=== PATIENT | female | born 1940 | race Hispanic/Latino ===

== ENCOUNTER 2017-05-17 00:17 | Inpatient (IN) | payer MEDICARE, OTHER ==
[2017-05-17 00:17] VITALS: BMI 25.1
[2017-05-17] MEDS ORDERED: Sodium Chloride 0.9% 1,000 ML IV STA (01:35)
[2017-05-17] MEDS ORDERED: Albuterol 0.083% Inhal Sol (2.5 mg/3 mL) UD INH STA ×2 (01:41→01:45)
[2017-05-17 02:22] LABS: BASO % 0.3 % (0.0-2.0); EOS # 0.1 K/uL (0.0-0.7); EOS % 0.5 % (0.0-4.0); HEMOGLOBIN 12.8 g/dL (12.0-16.0); LYMPH # 1.2 K/uL (1.0-4.3); LYMPH % 9.2 % (20.0-40.0); MEAN CELL VOLUME 92.5 fl (81.0-99.0); MEAN CORPUSCULAR HEMOGLOBIN 30.2 pg (27.0-31.0); MEAN CORPUSCULAR HGB CONC 32.6 g/dL (33.0-37.0); MEAN PLATELET VOLUME 10.8 fl (7.2-11.7); MONO # 0.9 K/uL (0.0-0.8); MONO % 7.1 % (0.0-10.0); NEUT # 10.6 K/uL (1.8-7.0); NEUT % 82.9 % (50.0-75.0); PLATELET COUNT 93 K/uL (130-400); RBC 4.24 Mil/uL (3.80-5.20); RED CELL DISTRIBUTION WIDTH 14.6 % (11.5-14.5); WHITE BLOOD COUNT 12.7 K/uL (4.8-10.8)
--- NOTE | 2017-05-17 02:26 | ED PDOC ---
HPI: General Adult Time Seen by Provider: 05/17/17 01:34 Chief Complaint (Nursing): Flu-like Symptoms Chief Complaint (Provider): Flu-like Symptoms History Per: Patient History/Exam Limitations: no limitations Onset/Duration Of Symptoms: Days (x2) Current Symptoms Are (Timing): Still Present Additional Complaint(s): Sarah Carmichael is a 76 year old female with a history of hypertension, angina, and asthma that presents to the ED with a chief complaint of flu-like symptoms that she has been experiencing for the past 2 days. Patient reports that she has had weakness, malaise, body aches, headache, and cough, but denies any nausea, vomiting, or diarrhea. Past Medical History Reviewed: Historical Data, Nursing Documentation, Vital Signs Vital Signs: Last Vital Signs Temp 98.2 F 05/19/17 16:31 Pulse 95 H 05/19/17 16:31 Resp 20 05/19/17 16:31 BP 132/71 05/19/17 16:31 Pulse Ox 97 05/19/17 16:31 - Medical History PMH: Anxiety, Asthma, Bronchitis, CAD, Gastritis, HTN, Hypothyroidism, Migraine , Osteoporosis (OSTEOPENIA) Denies: Colonic Polyps, Fractures, Chronic Kidney Disease, Sleep Apnea, TIA - Surgical History Surgical History: Cholecystectomy (complicated, required revision), Endoscopy ( Dr. Ratliff (GI)) - Family History Family History: States: Unknown Family Hx - Social History Current smoker - smoking cessation education provided: No Alcohol: None Drugs: Denies - Home Medications Home Medications: Ambulatory Orders Medication Instructions Recorded ALPRAZolam [Xanax] 0.5 tab PO TID PRN #0 tab 02/16/16 Albuterol 0.083% [Albuterol 0.083% 2.5 mg INH QID PRN #0 neb 02/16/16 Inhal Kristy (2.5 mg/3 ml) UD] Aspirin [Adult Low Dose Aspirin EC] 81 mg PO DAILY #0 tablet. 02/16/16 Calcium Carbonate [Oscal] 1 tab PO BID #0 tab 02/16/16 Fluticasone/Salmeterol 250/50 1 puff IH Q12 #0 puff 02/16/16 [Advair Diskus] Levothyroxine [Synthroid] 125 mcg PO DAILY #0 tab 11/15/16 Omeprazole 20 mg PO DAILY #0 capsule. 02/16/16 Valsartan [Diovan] 80 mg PO DAILY #0 tab 02/16/16 Zolpidem [Ambien] 10 mg PO HS #0 tab 02/16/16 amLODIPine [Norvasc] 10 mg PO DAILY #0 tab 02/16/16 traMADol [Ultram] 50 mg PO TID PRN #12 tab 02/16/16 Albuterol HFA [Ventolin HFA 90 2 puff INH Q6 PRN 05/17/17 mcg/actuation (8 g)] - Allergies Allergies/Adverse Reactions: Allergies Allergy/AdvReac Type Severity Reaction Status Date / Time ciprofloxacin Allergy chest Verified 11/30/16 07:02 pressure amoxicillin AdvReac DIARRHEA Verified 11/30/16 07:02 amoxicillin trihydrate AdvReac DIARRHEA Verified 11/30/16 07:02 [From Augmentin] cortisone AdvReac DIZZINESS Verified 11/30/16 07:02 potassium clavulanate AdvReac DIARRHEA Verified 11/30/16 07:02 [From Augmentin] Review of Systems ROS Statement: Except As Marked, All Systems Reviewed And Found Negative Constitutional: Positive for: Fever, Chills, Weakness, Malaise, Other (body aches) Respiratory: Positive for: Cough Neurological: Positive for: Headache Physical Exam - Reviewed Nursing Documentation Reviewed: Yes Vital Signs Reviewed: Yes - Physical Exam Appears: Positive for: Non-toxic, Uncomfortable (Patient is febrile) Head Exam: Positive for: ATRAUMATIC, NORMOCEPHALIC Skin: Positive for: Normal Color, Warm Eye Exam: Positive for: Normal appearance, EOMI, PERRL ENT: Positive for: Normal ENT Inspection Neck: Positive for: Normal, Supple Cardiovascular/Chest: Positive for: Regular Rate, Rhythm, Tachycardia. Negative for: Murmur Respiratory: Positive for: Wheezing (b/l expiratory wheezing). Negative for: Normal Breath Sounds Gastrointestinal/Abdominal: Positive for: Normal Exam, Soft. Negative for: Tenderness Back: Positive for: Normal Inspection. Negative for: L CVA Tenderness, R CVA Tenderness Extremity: Positive for: Normal ROM. Negative for: Deformity, Swelling Neurologic/Psych: Positive for: Alert, Oriented. Negative for: Motor/Sensory Deficits - Laboratory Results Result Diagrams: 05/19/17 06:05/18/17 05:45 - ECG O2 Sat by Pulse Oximetry: 90 (RA) Pulse Ox Interpretation: Normal Medical Decision Making Medical Decision Making: Impression: 76 year old female with flu-like symptoms in setting of known asthma Plan: * Chest X-Ray * EKG * CMP * CBC * Plasma Lactic Acid * Urine Dip * Flu Swab * Tylenol 975 mg PO * Lactated Ringers 1000 mLs at 125 mLs/hr * Tamiflu 75 mg PO * Albuterol 5 mg INH * Peak Flow Pre/Post Tx * Reevaluation 2:56 Chest X-Ray shows left lingular infiltrate. Patient will be hospitalized as observation patient for pneumonia. Case referred to Dr. Beaver, Hospitalist, who covers Dr. Pillai, patient's PMD. Scribe Attestation: Documented by Valeria Brunson, acting as a scribe for Cirilo Ramsey MD. Provider Scribe Attestation: All medical record entries made by the Scribe were at my direction and personally dictated by me. I have reviewed the chart and agree that the record accurately reflects my personal performance of the history, physical exam, medical decision making, and the department course for this patient. I have also personally directed, reviewed, and agree with the discharge instructions and disposition. Disposition - Clinical Impression Clinical Impression: Pneumonia - Disposition Disposition Time: 02:56 Condition: FAIR - Pt Status Changed To: Hospital Disposition Of: Observation
[2017-05-17 02:28] LABS: ALB/GLOB RATIO 1.1 (1.0-2.1); ALBUMIN 4.4 g/dL (3.5-5.0); ALT/SGPT 89 U/L (9-52); AST/SGOT 106 U/L (14-36); BLOOD UREA NITROGEN 14 mg/dl (7-17); CALCIUM 9.6 mg/dL (8.4-10.2); GFR AFRICAN-AMERICAN > 60; GFR NON-AFRICAN AMERICAN > 60
[2017-05-17] MEDS ORDERED: Albuterol 0.083% Inhal Sol (2.5 mg/3 mL) UD ONE (02:28)
[2017-05-17] MEDS ORDERED: Azithromycin 500 MG in Sodium Chloride 0.9% 250 ML IVPB STA (02:45)
--- NOTE | 2017-05-17 03:23 | CP.PCM.HP ---
History of Present Illness - History of Present Illness History of Present Illness: CC: Cough, SOB HPI: 76 y/o female with MHx significant for HTN, CAD, and asthma among other conditions who comes in with flu-like symptoms x 2 days. Patient has had f/c, myalgias, weakness, CEBALLOS. She has had some cough and SOB, but denies n/v/d. Denies CP. MHx: HTN, anxiety, hypothyroid, gastritis, CAD, ?Asthma SHx: Thyroid, GB (complicated) Allergies: Cipro, PCNs, clavulanic acid Medications: see below Family Hx: reveiwed, none pertinent to current illness Social Hx: Lives with ; denies EtOH or tobacco use Surrogate Decision Maker: Ric, ; info is on the chart Present on Admission - Present on Admission Any Indicators Present on Admission: No Past Patient History - Infectious Disease Hx of Infectious Diseases: None - Past Medical History & Family History Past Medical History?: Yes - Past Social History Alcohol: None Drugs: Denies - CARDIAC Hx Hypertension: Yes - PULMONARY Hx Asthma: Yes Hx Bronchitis: Yes Hx Sleep Apnea: No - NEUROLOGICAL Hx Migraine: Yes Hx Transient Ischemic Attacks (TIA): No - HEENT Hx HEENT Problems: No - RENAL Hx Chronic Kidney Disease: No - ENDOCRINE/METABOLIC Hx Hypothyroidism: Yes - HEMATOLOGICAL/ONCOLOGICAL Hx Blood Disorders: No Hx Blood Transfusions: Yes Hx Blood Transfusion Reaction: No - INTEGUMENTARY Hx Dermatological Problems: No - MUSCULOSKELETAL/RHEUMATOLOGICAL Hx Fractures: No Hx Osteoporosis: Yes (OSTEOPENIA) - GASTROINTESTINAL Hx Gastritis: Yes - GENITOURINARY/GYNECOLOGICAL Hx Genitourinary Disorders: No - PSYCHIATRIC Hx Anxiety: Yes - SURGICAL HISTORY Hx Cholecystectomy: Yes (complicated, required revision) - ANESTHESIA Hx Anesthesia: Yes Hx Anesthesia Reactions: No Hx Malignant Hyperthermia: No Meds Allergies/Adverse Reactions: Allergies Allergy/AdvReac Type Severity Reaction Status Date / Time ciprofloxacin Allergy chest Verified 11/30/16 07:02 pressure amoxicillin AdvReac DIARRHEA Verified 11/30/16 07:02 amoxicillin trihydrate AdvReac DIARRHEA Verified 11/30/16 07:02 [From Augmentin] cortisone AdvReac DIZZINESS Verified 11/30/16 07:02 potassium clavulanate AdvReac DIARRHEA Verified 11/30/16 07:02 [From Augmentin] Physical Exam - Constitutional Appears: Toxic - Head Exam Head Exam: ATRAUMATIC, NORMOCEPHALIC - Eye Exam Eye Exam: EOMI, PERRL - ENT Exam ENT Exam: Mucous Membranes Moist - Neck Exam Neck exam: Positive for: Full Rom - Respiratory Exam Respiratory Exam: Rhonchi, Wheezes, NORMAL BREATHING PATTERN - Cardiovascular Exam Cardiovascular Exam: REGULAR RHYTHM, +S1, +S2 - GI/Abdominal Exam GI & Abdominal Exam: Normal Bowel Sounds - Extremities Exam Extremities exam: Positive for: full ROM, pedal edema - Neurological Exam Neurological exam: Alert, CN II-XII Intact, Oriented x3 - Psychiatric Exam Psychiatric exam: Normal Affect, Normal Mood - Skin Skin Exam: Dry, Warm Results - Vital Signs Recent Vital Signs: Last Vital Signs Temp 100.8 F H 05/17/17 01:24 Pulse 122 H 05/17/17 01:24 Resp 20 05/17/17 01:24 BP 147/71 05/17/17 01:24 Pulse Ox 90 L 05/17/17 02:59 - Labs Result Diagrams: 05/17/17 02:18 05/17/17 02:18 Labs: Laboratory Results - last 24 hr 05/17/17 05/17/17 05/17/17 02:07 02:18 02:18 WBC 12.7 H RBC 4.24 Hgb 12.8 Hct 39.3 MCV 92.5 D MCH 30.2 MCHC 32.6 L RDW 14.6 H Plt Count 93 L D MPV 10.8 Neut % (Auto) 82.9 H Lymph % (Auto) 9.2 L [place] % (Auto) 7.1 Eos % (Auto) 0.5 Baso % (Auto) 0.3 Neut # (Auto) 10.6 H Lymph # (Auto) 1.2 [place] # (Auto) 0.9 H Eos # (Auto) 0.1 Baso # (Auto) 0.0 Sodium 142 Potassium 4.2 Chloride 104 Carbon Dioxide 27 Anion Gap 15 BUN 14 Creatinine 0.8 Est GFR ( Amer) > 60 Est GFR (Non-Af Amer) > 60 Random Glucose 153 H Lactic Acid Calcium 9.6 Total Bilirubin 0.9 AST 106 H ALT 89 H D Alkaline Phosphatase 156 H Total Protein 8.2 Albumin 4.4 Globulin 3.8 Albumin/Globulin Ratio 1.1 Influenza Typ A,B (EIA) Negative for flu a/b 05/17/17 02:18 WBC RBC Hgb Hct MCV MCH MCHC RDW Plt Count MPV Neut % (Auto) Lymph % (Auto) [place] % (Auto) Eos % (Auto) Baso % (Auto) Neut # (Auto) Lymph # (Auto) [place] # (Auto) Eos # (Auto) Baso # (Auto) Sodium Potassium Chloride Carbon Dioxide Anion Gap BUN Creatinine Est GFR ( Amer) Est GFR (Non-Af Amer) Random Glucose Lactic Acid 2.2 H Calcium Total Bilirubin AST ALT Alkaline Phosphatase Total Protein Albumin Globulin Albumin/Globulin Ratio Influenza Typ A,B (EIA) - Imaging and Cardiology Chest x-ray Status: Image reviewed by me, Report reviewed by me (lingrishi PNA per official read) Assessment & Plan (1) CAP (community acquired pneumonia) Assessment and Plan: 76 y/o female with multiple medical with CAP on CXR in setting of flu like symptoms (negative flu swab). 1) Flu + CAP -For now continue tamiflu -Cont azithromycin for CAP coverage; Will add 1x dose of Vanco 1 g for MRSA PNA in setting of post flu -Consider ID consult -Duonebs -IVF 2) Thyroid -- cont home medications 3) HTN -- cont home medications 4) DVT PPx -- SC Lovenox Status: Acute (2) Influenza Status: Acute (3) Asthma exacerbation Status: Acute (4) DVT prophylaxis Status: Acute
[2017-05-17] MEDS ORDERED: Albuterol-Ipratrop 3 mg / 0.5 (3 ml) UD INH PRN (03:34)
[2017-05-17] MEDS ORDERED: Sodium Chloride 0.9% 1,000 ML IV SCH (03:45)
[2017-05-17] MEDS: Lactated Ringer's 1,000 ML IV SCH ×2 (04:21→09:54)
[2017-05-17 05:08] LABS: BANDS 1 % (0-2); LYMPHOCYTE 11 % (20-50); MONOCYTE 2 % (0-10); NEUTROPHIL 85 % (42-75); REACTIVE LYMPHOCYTES 1 % (0-0); TOTAL CELLS COUNTED 100
[2017-05-17 05:09] LABS: PLATELET ESTIMATE MARKEDLY DECREASED (NORMAL)
[2017-05-17 05:10] LABS: ANISOCYTOSIS SLIGHT; HYPOCHROMIC SLIGHT; STOMATOCYTES SLIGHT
[2017-05-17] MEDS: Albuterol-Ipratrop 3 mg / 0.5 (3 ml) UD INH SCH ×3 (08:26→16:01)
[2017-05-17] MEDS: Fluticasone-Salmeterol 250-50mcg Diskus IH SCH ×2 (09:48→22:15)
[2017-05-17] MEDS: Enoxaparin 40 mg Syringe SC SCH (09:49)
[2017-05-17] MEDS: Levothyroxine 125 MCG TAB PO SCH (09:50)
[2017-05-17] MEDS: Pantoprazole 40 mg EC Tab PO SCH (09:50)
--- NOTE | 2017-05-17 10:23 | RAD ---
HISTORY: cough COMPARISON: 02/13/2016 FINDINGS: LUNGS: The left infrahilar bronchial/peribronchial markings are increased -consistent with a bronchitis and/or small cyst infiltrate here. Lung volumes at the lower limits of normal. PLEURA: No significant pleural effusion identified, no pneumothorax apparent. CARDIOVASCULAR: Minimal cardiomegaly OSSEOUS STRUCTURES: Thoracic spondylosis. Bilateral shoulder arthrosis VISUALIZED UPPER ABDOMEN: Right upper quadrant cholecystectomy clips inferred OTHER FINDINGS: None. IMPRESSION: Interval left infrahilar bronchitic and/or early infiltrate changes
--- NOTE | 2017-05-17 14:07 | CARD ---
APPROVED REPORT EKG Measurement Heart [id number] <Conclusion> Sinus tachycardia Right bundle branch block Abnormal ECG
[2017-05-18 06:40] LABS: BASO % 0.2 % (0.0-2.0); EOS # 0.1 K/uL (0.0-0.7); EOS % 0.9 % (0.0-4.0); LYMPH # 2.3 K/uL (1.0-4.3); LYMPH % 16.7 % (20.0-40.0); MEAN CELL VOLUME 91.9 fl (81.0-99.0); MEAN CORPUSCULAR HEMOGLOBIN 30.5 pg (27.0-31.0); MEAN CORPUSCULAR HGB CONC 33.2 g/dL (33.0-37.0); MEAN PLATELET VOLUME 11.2 fl (7.2-11.7); MONO # 0.7 K/uL (0.0-0.8); MONO % 5.3 % (0.0-10.0); NEUT # 10.4 K/uL (1.8-7.0); NEUT % 76.9 % (50.0-75.0); RBC 3.92 Mil/uL (3.80-5.20); RED CELL DISTRIBUTION WIDTH 14.8 % (11.5-14.5); WHITE BLOOD COUNT 13.6 K/uL (4.8-10.8)
[2017-05-18 06:49] LABS: BLOOD UREA NITROGEN 7 mg/dl (7-17); CALCIUM 8.7 mg/dL (8.4-10.2); GFR AFRICAN-AMERICAN > 60; GFR NON-AFRICAN AMERICAN > 60
[2017-05-18] MEDS: Albuterol-Ipratrop 3 mg / 0.5 (3 ml) UD INH SCH ×4 (08:58→20:59)
[2017-05-18] MEDS: Fluticasone-Salmeterol 250-50mcg Diskus IH SCH ×2 (09:05→21:21)
[2017-05-18] MEDS: Levothyroxine 125 MCG TAB PO SCH (09:06)
[2017-05-18] MEDS: Pantoprazole 40 mg EC Tab PO SCH (09:06)
[2017-05-18] MEDS: Enoxaparin 40 mg Syringe SC SCH (09:06)
[2017-05-18] MEDS: Azithromycin 500 MG in Sodium Chloride 0.9% 250 ML IVPB SCH (09:12)
--- NOTE | 2017-05-18 10:25 | CP.PCM.PN ---
Subjective - Date & Time of Evaluation Date of Evaluation: 05/18/17 Time of Evaluation: 10:23 - Subjective Subjective: PT CONTINUES TO COUGH, SATURATING IMPROVED FROM YESTERDAY, HOWEVER NOT AT BASELINE, CLINICALLY WORSE THAN YESTERDAY. otherwise no complaints HD STABLE NAD Objective - Vital Signs/Intake and Output Vital Signs (last 24 hours): Temp Pulse Resp BP Pulse Ox 99.3 F 98 H 20 150/72 93 L 05/18/17 08:10 05/18/17 09:06 05/18/17 08:10 05/18/17 09:06 05/18/17 08:10 - Medications Medications: Current Medications Acetaminophen (Tylenol 325mg Tab) 650 mg PO Q6 PRN PRN Reason: Fever >100.4 F Acetaminophen (Tylenol 325mg Tab) 650 mg PO Q6 PRN PRN Reason: Pain, Mild (1-3) Albuterol/Ipratropium (Duoneb 3 Mg/0.5 Mg (3 Ml) Ud) 3 ml INH RQID [facility] Last Admin: 05/17/17 16:01 Dose: 3 ml Albuterol/Ipratropium (Duoneb 3 Mg/0.5 Mg (3 Ml) Ud) 3 ml INH RQ6 PRN PRN Reason: Shortness of Breath Amlodipine Besylate (Norvasc) 10 mg PO DAILY [facility] Last Admin: 05/18/17 09:06 Dose: 10 mg Aspirin (Ecotrin) 81 mg PO DAILY [facility] Last Admin: 05/18/17 09:06 Dose: 81 mg Enoxaparin Sodium (Lovenox) 40 mg SC DAILY [facility] PRN Reason: Protocol Last Admin: 05/18/17 09:06 Dose: 40 mg Azithromycin 500 mg/ Sodium (Chloride) 250 mls @ 250 mls/hr IVPB DAILY [facility] PRN Reason: Protocol Last Admin: 05/18/17 09:12 Dose: 250 mls/hr Ceftriaxone Sodium 1 gm/ (Sodium Chloride) 100 mls @ 100 mls/hr IVPB DAILY [facility] PRN Reason: Protocol Levothyroxine Sodium (Synthroid) 125 mcg PO DAILY [facility] Last Admin: 05/18/17 09:06 Dose: 125 mcg Pantoprazole Sodium (Protonix Ec Tab) 40 mg PO DAILY [facility] Last Admin: 05/18/17 09:06 Dose: 40 mg Fluticasone/Salmeterol (Advair Diskus 250/50) 1 puff IH Q12 [facility] Last Admin: 05/18/17 09:05 Dose: 1 puff Tramadol HCl (Ultram) 50 mg PO TID PRN PRN Reason: Pain, moderate (4-7) Last Admin: 05/18/17 09:11 Dose: 50 mg Valsartan (Diovan) 80 mg PO DAILY [facility] Last Admin: 05/18/17 09:06 Dose: 80 mg - Labs Labs: 05/18/17 05:45 05/18/17 05:45 - Constitutional Appears: Non-toxic, No Acute Distress - Head Exam Head Exam: ATRAUMATIC, NORMOCEPHALIC - Eye Exam Eye Exam: EOMI, Normal appearance, PERRL - ENT Exam ENT Exam: Mucous Membranes Moist, Normal Oropharynx - Neck Exam Neck Exam: Full ROM, Normal Inspection - Respiratory Exam Respiratory Exam: Wheezes, NORMAL BREATHING PATTERN. absent: Respiratory Distress - Cardiovascular Exam Cardiovascular Exam: RRR, +S1, +S2 - GI/Abdominal Exam GI & Abdominal Exam: Soft, Normal Bowel Sounds. absent: Tenderness, Mass, Rebound - Extremities Exam Extremities Exam: Full ROM, Normal Capillary Refill - Back Exam Back Exam: absent: CVA tenderness (L), CVA tenderness (R) - Neurological Exam Neurological Exam: Alert, Awake, Oriented x3 - Psychiatric Exam Psychiatric exam: Normal Affect, Normal Mood - Skin Skin Exam: Dry, Warm Assessment and Plan - Assessment and Plan (Free Text) Plan: 76 y/o female with multiple medical with CAP on CXR in setting of flu like symptoms (negative flu swab). 1) CAP -Cont azithromycin and ceftriaxone - may consider dc tomorrow if clinically improved. -Duonebs 2) Hypothyroid -- cont Synthroid 3) HTN -- cont Valsartan 80 mg PO DAILY, amLODIPine 10 mg PO DAILY, cont ASA 4) DVT PPx -- SC Lovenox
[2017-05-19 06:44] LABS: MEAN CELL VOLUME 92.4 fl (81.0-99.0); MEAN CORPUSCULAR HEMOGLOBIN 29.9 pg (27.0-31.0); MEAN CORPUSCULAR HGB CONC 32.4 g/dL (33.0-37.0); RBC 4.03 Mil/uL (3.80-5.20); RED CELL DISTRIBUTION WIDTH 14.3 % (11.5-14.5); WHITE BLOOD COUNT 11.9 K/uL (4.8-10.8)
[2017-05-19] MEDS: Albuterol-Ipratrop 3 mg / 0.5 (3 ml) UD INH SCH ×4 (07:15→19:05)
[2017-05-19] MEDS: Enoxaparin 40 mg Syringe SC SCH (10:25)
[2017-05-19] MEDS: Fluticasone-Salmeterol 250-50mcg Diskus IH SCH ×2 (10:25→21:20)
[2017-05-19] MEDS: Levothyroxine 125 MCG TAB PO SCH (10:26)
[2017-05-19] MEDS: Pantoprazole 40 mg EC Tab PO SCH (10:26)
[2017-05-19] MEDS: Azithromycin 500 MG in Sodium Chloride 0.9% 250 ML IVPB SCH (11:34)
--- NOTE | 2017-05-19 17:48 | CP.PCM.PN ---
Subjective - Date & Time of Evaluation Date of Evaluation: 05/19/17 Time of Evaluation: 13:00 - Subjective Subjective: Patient seen and examined at bedside. Still continues to cough sputum. Slowly improving but not at baseline Complains of weakness HD Stable, no apparent distress Objective - Vital Signs/Intake and Output Vital Signs (last 24 hours): Temp Pulse Resp BP Pulse Ox 98.2 F 95 H 20 132/71 97 05/19/17 16:31 05/19/17 16:31 05/19/17 16:31 05/19/17 16:31 05/19/17 16:31 - Medications Medications: Current Medications Acetaminophen (Tylenol 325mg Tab) 650 mg PO Q6 PRN PRN Reason: Fever >100.4 F Acetaminophen (Tylenol 325mg Tab) 650 mg PO Q6 PRN PRN Reason: Pain, Mild (1-3) Last Admin: 05/18/17 16:41 Dose: 650 mg Albuterol/Ipratropium (Duoneb 3 Mg/0.5 Mg (3 Ml) Ud) 3 ml INH RQID [facility] Last Admin: 05/19/17 15:31 Dose: 3 ml Albuterol/Ipratropium (Duoneb 3 Mg/0.5 Mg (3 Ml) Ud) 3 ml INH RQ6 PRN PRN Reason: Shortness of Breath Amlodipine Besylate (Norvasc) 10 mg PO DAILY [facility] Last Admin: 05/19/17 10:26 Dose: 10 mg Aspirin (Ecotrin) 81 mg PO DAILY [facility] Last Admin: 05/19/17 10:25 Dose: 81 mg Enoxaparin Sodium (Lovenox) 40 mg SC DAILY [facility] PRN Reason: Protocol Last Admin: 05/19/17 10:25 Dose: 40 mg Azithromycin 500 mg/ Sodium (Chloride) 250 mls @ 250 mls/hr IVPB DAILY [facility] PRN Reason: Protocol Last Admin: 05/19/17 11:34 Dose: 250 mls/hr Ceftriaxone Sodium 1 gm/ (Sodium Chloride) 100 mls @ 100 mls/hr IVPB DAILY [facility] PRN Reason: Protocol Last Admin: 05/19/17 10:26 Dose: 100 mls/hr Levothyroxine Sodium (Synthroid) 125 mcg PO DAILY [facility] Last Admin: 05/19/17 10:26 Dose: 125 mcg Pantoprazole Sodium (Protonix Ec Tab) 40 mg PO DAILY [facility] Last Admin: 05/19/17 10:26 Dose: 40 mg Fluticasone/Salmeterol (Advair Diskus 250/50) 1 puff IH Q12 [facility] Last Admin: 05/19/17 10:25 Dose: 1 puff Tramadol HCl (Ultram) 50 mg PO TID PRN PRN Reason: Pain, moderate (4-7) Last Admin: 05/18/17 09:11 Dose: 50 mg Valsartan (Diovan) 80 mg PO DAILY [facility] Last Admin: 05/19/17 10:25 Dose: 80 mg Zolpidem Tartrate (Ambien) 5 mg PO HS PRN PRN Reason: Sleep Last Admin: 05/18/17 22:52 Dose: 5 mg - Labs Labs: 05/19/17 06:05 05/18/17 05:45 - Additional Findings Additional findings: Physical exam: Constitutional- cooperative, awake, alert Head- NCAT, PERRL Eye- PERRL, EOMI ENT- normal exam, MMM. Neck- normal inspection, supple, no JVD Respiratory- CTAB, no wheezes rales rhonchi Cardiovascular- RRR, +S1, +S2 no MRG GI/Abdominal- normal bowel sounds, soft, no mass, no hsm Skin- warm, dry Extremities Exam- normal capillary refill, normal inspection Neurological Exam- alert, awake, oriented Psych- normal mood, normal affec Assessment and Plan - Assessment and Plan (Free Text) Plan: 76 y/o female with multiple medical problems, with CAP on CXR in setting of flu like symptoms (negative flu swab). 1) CAP- slowly improving, still with productive cough -Cont azithromycin and ceftriaxone -Duonebs - Likely discharge to home in AM if continued improvement 2) Hypothyroid -- cont Synthroid 3) HTN -- cont Valsartan 80 mg PO DAILY, amLODIPine 10 mg PO DAILY, cont ASA 4) DVT PPx -- SC Lovenox
[2017-05-20 07:24] LABS: HEMOGLOBIN 11.2 g/dL (12.0-16.0); MEAN CELL VOLUME 91.7 fl (81.0-99.0); MEAN CORPUSCULAR HEMOGLOBIN 31.2 pg (27.0-31.0); RBC 3.6 Mil/uL (3.80-5.20); RED CELL DISTRIBUTION WIDTH 14.3 % (11.5-14.5); WHITE BLOOD COUNT 8.1 K/uL (4.8-10.8)
[2017-05-20] MEDS: Albuterol-Ipratrop 3 mg / 0.5 (3 ml) UD INH SCH ×3 (08:00→16:32)
[2017-05-20 09:05] VITALS: RESP 18
[2017-05-20] MEDS: Fluticasone-Salmeterol 250-50mcg Diskus IH SCH (10:20)
[2017-05-20] MEDS: Pantoprazole 40 mg EC Tab PO SCH (10:21)
[2017-05-20] MEDS: Enoxaparin 40 mg Syringe SC SCH (10:21)
[2017-05-20] MEDS: Levothyroxine 125 MCG TAB PO SCH (10:21)
--- NOTE | 2017-05-20 10:31 | CP.PCM.DIS ---
Provider - Provider Date of Admission: 05/18/17 10:22 Attending physician: Maxim Beaver MD Primary care physician: Royal Pillai MD Time Spent in preparation of Discharge (in minutes): 25 Diagnosis - Discharge Diagnosis (1) Bronchitis Status: Acute Comment: suspicious for small left infrahilar pneumonia. continue Zithromax 500mg PO daily for 7 days. Bacid 1 cap PO BID. follow with Dr Pillai after 10 days (2) HTN (hypertension) Status: Chronic Comment: BP stable. continue Amlodipine 10mg PO daily and Valsartan 80mg PO daily (3) Asthma, mild intermittent Status: Chronic Comment: resume Advair 1 puff q 12hrs. Albuterol inhaler 2 puffs q 4hrs prn for SOB/wheezing Hospital Course - Lab Results Lab Results: Micro Results 05/17/17 02:11 Blood Blood Culture - Preliminary NO GROWTH AFTER 3 DAYS Most Recent Lab Values WBC 8.1 K/uL (4.8-10.8) 05/20/17 05:30 RBC 3.60 Mil/uL (3.80-5.20) L 05/20/17 05:30 Hgb 11.2 g/dL (12.0-16.0) L 05/20/17 05:30 Hct 33.0 % (34.0-47.0) L 05/20/17 05:30 MCV 91.7 fl (81.0-99.0) 05/20/17 05:30 MCH 31.2 pg (27.0-31.0) H 05/20/17 05:30 MCHC 34.0 g/dL (33.0-37.0) 05/20/17 05:30 RDW 14.3 % (11.5-14.5) 05/20/17 05:30 Plt Count 108 K/uL (130-400) L 05/20/17 05:30 MPV 11.2 fl (7.2-11.7) 05/18/17 05:45 Neut % (Auto) 76.9 % (50.0-75.0) H 05/18/17 05:45 Lymph % (Auto) 16.7 % (20.0-40.0) L 05/18/17 05:45 [place] % (Auto) 5.3 % (0.0-10.0) 05/18/17 05:45 Eos % (Auto) 0.9 % (0.0-4.0) 05/18/17 05:45 Baso % (Auto) 0.2 % (0.0-2.0) 05/18/17 05:45 Neut # (Auto) 10.4 K/uL (1.8-7.0) H 05/18/17 05:45 Lymph # (Auto) 2.3 K/uL (1.0-4.3) 05/18/17 05:45 [place] # (Auto) 0.7 K/uL (0.0-0.8) 05/18/17 05:45 Eos # (Auto) 0.1 K/uL (0.0-0.7) 05/18/17 05:45 Baso # (Auto) 0.0 K/uL (0.0-0.2) 05/18/17 05:45 Neutrophils % (Manual) 85 % (42-75) H 05/17/17 02:18 Band Neutrophils % 1 % (0-2) 05/17/17 02:18 Lymphocytes % (Manual) 11 % (20-50) L 05/17/17 02:18 Reactive Lymphs % 1 % (0-0) H 05/17/17 02:18 Monocytes % (Manual) 2 % (0-10) 05/17/17 02:18 Platelet Estimate Markedly decreased (NORMAL) L 05/17/17 02:18 Hypochromasia (manual) Slight 05/17/17 02:18 Anisocytosis (manual) Slight 05/17/17 02:18 Stomatocytes Slight 05/17/17 02:18 Sodium 140 mmol/l (132-148) 05/18/17 05:45 Potassium 3.7 MMOL/L (3.6-5.0) 05/18/17 05:45 Chloride 106 mmol/L (98-107) 05/18/17 05:45 Carbon Dioxide 25 mmol/L (22-30) 05/18/17 05:45 Anion Gap 13 (10-20) 05/18/17 05:45 BUN 7 mg/dl (7-17) 05/18/17 05:45 Creatinine 0.7 mg/dl (0.7-1.2) 05/18/17 05:45 Est GFR ( Amer) > 60 05/18/17 05:45 Est GFR (Non-Af Amer) > 60 05/18/17 05:45 Random Glucose 100 mg/dL (65-105) 05/18/17 05:45 Lactic Acid 2.2 MMOL/L (0.7-2.1) H 05/17/17 02:18 Calcium 8.7 mg/dL (8.4-10.2) 05/18/17 05:45 Total Bilirubin 0.9 mg/dl (0.2-1.3) 05/17/17 02:18 AST 106 U/L (14-36) H 05/17/17 02:18 ALT 89 U/L (9-52) H D 05/17/17 02:18 Alkaline Phosphatase 156 U/L (38-126) H 05/17/17 02:18 Total Protein 8.2 G/DL (6.3-8.2) 05/17/17 02:18 Albumin 4.4 g/dL (3.5-5.0) 05/17/17 02:18 Globulin 3.8 gm/dL (2.2-3.9) 05/17/17 02:18 Albumin/Globulin Ratio 1.1 (1.0-2.1) 05/17/17 02:18 Procalcitonin 1.23 NG/ML (0.19-0.49) H 05/18/17 12:24 Influenza Typ A,B (EIA) Negative for flu a/b (NEGATIVE) 05/17/17 02:07 - Hospital Course Hospital Course: 76 yo female with history of HTN, CAD and Asthma came in complaining of fever and chills, body aches and headache associated with coughing and SOB. Serum test was negative for flu but chest xray was consistent with bronchitis and possible pneumonia. Patient was started on IV Azithromycin and Rocephin as well as resumption of her home medications for Asthma, HTN and CAD. Although still having cough, patient admitted feeling better and now is ready for discharge. Discharge Exam - Head Exam Head Exam: ATRAUMATIC, NORMOCEPHALIC - Eye Exam Eye Exam: absent: Scleral icterus - ENT Exam ENT Exam: Mucous Membranes Moist - Respiratory Exam Respiratory Exam: absent: Rhonchi, Wheezes, Respiratory Distress - Cardiovascular Exam Cardiovascular Exam: REGULAR RHYTHM, +S1, +S2 - GI/Abdominal Exam GI & Abdominal Exam: Soft. absent: Tenderness - Rectal Exam Rectal Exam: Deferred - Neurological Exam Neurological exam: Alert, Oriented x3 - Psychiatric Exam Psychiatric exam: Normal Affect - Skin Skin Exam: Dry, Intact Discharge Plan - Discharge Medications Prescriptions: Azithromycin [Zithromax] 500 mg PO DAILY #7 tablet Lactobacillus Acidophilus [Bacid Acidophilus] 1 cap PO BID #14 cap - Follow Up Plan Condition: FAIR Disposition: HOME/ ROUTINE Instructions: Pneumonia (DC) Referrals: Royal Pillai MD [Primary Care Provider] -
[2017-05-20] MEDS: Azithromycin 500 MG in Sodium Chloride 0.9% 250 ML IVPB SCH (11:20)
[2017-05-20 15:39] VITALS: BP 138/73; PULSE 82; TEMP 98.3; O2SAT 95
== END 2017-05-20 18:32 | disposition home or self-care (01) | DRG 195 ==
LOC: H.ER 00:17 → H.ERHOLD 02:42 → H.TEL 07:03 → H.MEDSURG1 18:23 → OBSVTOIN 05-18 10:22
PROVIDERS: ADMIT Internal Medicine; ATTEND Internal Medicine
PROC: 3E0F73Z Introduction of Anti-inflammatory into Respiratory Tract, Via Natural or Artificial Opening (ICD-10-PCS; principal; 2017-05-18)
DX: J10.08 Influenza due to other identified influenza virus with other specified pneumonia (principal); J18.8 Other pneumonia, unspecified organism; J10.1 Influenza due to other identified influenza virus with other respiratory manifestations; J20.9 Acute bronchitis, unspecified; J45.21 Mild intermittent asthma with (acute) exacerbation; I25.10 Atherosclerotic heart disease of native coronary artery without angina pectoris; I10 Essential (primary) hypertension; E03.9 Hypothyroidism, unspecified; K29.70 Gastritis, unspecified, without bleeding; M81.0 Age-related osteoporosis without current pathological fracture; F41.9 Anxiety disorder, unspecified; Z79.82 Long term (current) use of aspirin; Z88.1 Allergy status to other antibiotic agents; Z88.0 Allergy status to penicillin

== ENCOUNTER 2018-08-07 15:56 | Observation (INO) | payer MEDICARE, OTHER ==
[2018-08-07 15:58] VITALS: BMI 25.1
--- NOTE | 2018-08-07 17:30 | ED PDOC ---
HPI: CCC, URI, Sore Throat Time Seen by Provider: 08/07/18 17:05 Chief Complaint (Nursing): Chest Pain Chief Complaint (Provider): Cough, chest pain History Per: Patient History/Exam Limitations: no limitations Have you had recent travel within the past 21 days to any of the following countries: [place], [place], [place] or [place]?: No Onset/Duration Of Symptoms: Days Current Symptoms Are (Timing): Still Present Associated Symptoms: Cough, Sputum. denies: Fever Additional Complaint(s): 78yo female with history of asthma, hypertension, CAD, comes to ER reporting cough with sputum, back pain and left sided chest pain x 3 days. She denies any associated fever, chills, or other complaints. She has been using albuterol at home with no relief of cough; patient took tramadol at home with good relief of pain. Past Medical History Reviewed: Historical Data, Nursing Documentation, Vital Signs Vital Signs: Last Vital Signs Temp 97.9 F 08/07/18 16:02 Pulse 83 08/07/18 16:02 Resp 16 08/07/18 16:02 BP 163/72 H 08/07/18 16:02 Pulse Ox 97 08/07/18 16:02 Primary Care Provider: Royal Pillai - Medical History PMH: Anxiety, Asthma, Bronchitis, CAD, Gastritis, HTN, Hypothyroidism, Migraine, Osteoporosis (OSTEOPENIA) Denies: Colonic Polyps, Fractures, HIV, Chronic Kidney Disease, Sleep Apnea, TIA - Surgical History Surgical History: Cholecystectomy (complicated, required revision), Endoscopy (Dr. Ratliff (GI)) - Family History Family History: States: Unknown Family Hx - Home Medications Home Medications: Ambulatory Orders Medication Instructions Recorded ALPRAZolam [Xanax] 0.5 tab PO TID PRN #0 tab 02/16/16 Albuterol 0.083% [Albuterol 0.083% 2.5 mg INH QID PRN #0 neb 02/16/16 Inhal Kristy (2.5 mg/3 ml) UD] Aspirin [Adult Low Dose Aspirin EC] 81 mg PO DAILY #0 tablet. 02/16/16 Calcium Carbonate [Oscal] 1 tab PO BID #0 tab 02/16/16 Fluticasone/Salmeterol 250/50 1 puff IH Q12 #0 puff 02/16/16 [Advair Diskus 250/50] Levothyroxine [Synthroid] 125 mcg PO DAILY #0 tab 02/16/16 Omeprazole 20 mg PO DAILY #0 britney. 02/16/16 Valsartan [Diovan] 80 mg PO DAILY #0 tab 02/16/16 Zolpidem [Ambien] 10 mg PO HS #0 tab 02/16/16 amLODIPine [Norvasc] 10 mg PO DAILY #0 tab 02/16/16 traMADol [Ultram] 50 mg PO TID PRN #12 tab 02/16/16 Albuterol HFA [Ventolin HFA 90 2 puff INH Q6 PRN 05/17/17 mcg/actuation (8 g)] guaiFENesin/Dextromethorphan 10 ml PO Q6H PRN #1 udc 08/08/18 [guaiFENesin-DM] - Allergies Allergies/Adverse Reactions: Allergies Allergy/AdvReac Type Severity Reaction Status Date / Time ciprofloxacin Allergy chest Verified 08/07/18 16:02 pressure amoxicillin AdvReac DIARRHEA Verified 08/07/18 16:02 amoxicillin trihydrate AdvReac DIARRHEA Verified 08/07/18 16:02 [From Augmentin] cortisone AdvReac DIZZINESS Verified 08/07/18 16:02 potassium clavulanate AdvReac DIARRHEA Verified 08/07/18 16:02 [From Augmentin] Review of Systems ROS Statement: Except As Marked, All Systems Reviewed And Found Negative Constitutional: Negative for: Fever, Chills Cardiovascular: Positive for: Chest Pain Respiratory: Positive for: Cough, Sputum Musculoskeletal: Positive for: Back Pain Physical Exam - Reviewed Nursing Documentation Reviewed: Yes Vital Signs Reviewed: Yes - Physical Exam Appears: Positive for: Non-toxic, Uncomfortable Head Exam: Positive for: ATRAUMATIC, NORMAL INSPECTION, NORMOCEPHALIC Skin: Positive for: Normal Color Eye Exam: Positive for: Normal appearance Neck: Positive for: Supple Cardiovascular/Chest: Positive for: Regular Rate, Rhythm. Negative for: Chest Non Tender (+ tenderness to left anterior chest wall.), Tachycardia Respiratory: Positive for: Wheezing (bilateral). Negative for: Respiratory Distress Gastrointestinal/Abdominal: Positive for: Normal Exam, Soft Back: Positive for: Other (diffuse back tenderness). Negative for: Vertebral Tenderness Extremity: Positive for: Normal ROM. Negative for: Pedal Edema, Deformity Neurological/Psych: Positive for: Awake, Alert, Normal Tone - Laboratory Results Result Diagrams: 08/08/18 05:50 08/08/18 05:50 - ECG O2 Sat by Pulse Oximetry: 97 (RA) Pulse Ox Interpretation: Normal - Critical Care Total Time (In Min): 30 Medical Decision Making Medical Decision Making: Impression: Cough, SOB, chest pain Plan: -- Labs -- EKG -- CXR -- Urinalysis -- Albuterol 3mg IV -- Solumedrol 125mg IVP Accession No. : [id number] Patient Name / ID : NAIMA MICHELLE / [id number] Exam Date : 08/07/2018 18:30:00 ( Approved ) Study Comment : Sex / Age : F / 78Y Creator : Tamera Buenrostro Dictator : Tamera Buenrostro Floor Representative : Rn Ccu : Tamera Buenrostro Approver2 : Report Date : 08/08/2018 12:46:11 My Comment : Date of service: 08/07/2018 HISTORY: Cough COMPARISON: No prior. TECHNIQUE: 1 view obtained. FINDINGS: LUNGS: No interval consolidation seen. Lb its persisting-it is less conspicuous the left infrahilar bronchovascular markings peribronchial thickening current appearance is compatible with top-normal appearance left heart. No persistent underlying pathology here is bili present. PLEURA: No significant pleural effusion identified, no pneumothorax apparent. CARDIOVASCULAR: No aortic atherosclerotic calcification present. Normal cardiac size. No pulmonary vascular congestion. OSSEOUS STRUCTURES: Bilateral shoulder arthrosis. Mild thoracic spondylosis. VISUALIZED UPPER ABDOMEN: Prior surgical clips right upper quadrant less conspicuous-changes view small on this exam than before OTHER FINDINGS: None. IMPRESSION: No residual or significant appearing cardiopulmonary pathology believed present. No dense consolidative infiltrate appreciated. Other findings as above. Scribe Attestation: Documented by Farzaneh Byrne acting as a scribe for Maria C Butler MD Provider Scribe Attestation: All medical record entries made by the Scribe were at my direction and personally dictated by me. I have reviewed the chart and agree that the record accurately reflects my personal performance of the history, physical exam, medical decision making, and the department course for this patient. I have also personally directed, reviewed, and agree with the discharge instructions and disposition. Disposition - Clinical Impression Clinical Impression: Asthma exacerbation, Chest pain - Patient ED Disposition Is Patient to be Admitted: Yes - Disposition Disposition Time: 20:36 Condition: STABLE - Pt Status Changed To: Hospital Disposition Of: Observation - POA Present On Arrival: None
[2018-08-07] MEDS ORDERED: Albuterol-Ipratrop 3 mg / 0.5 (3 ml) UD INH STA (17:32)
[2018-08-07] MEDS ORDERED: Albuterol-Ipratrop 3 mg / 0.5 (3 ml) UD ONE (17:51)
[2018-08-07 18:09] LABS: BASO % 0.6 % (0.0-2.0); EOS # 0.1 K/uL (0.0-0.7); EOS % 2.2 % (0.0-4.0); HEMOGLOBIN 13.2 g/dL (12.0-16.0); LYMPH # 1.6 K/uL (1.0-4.3); LYMPH % 31.2 % (20.0-40.0); MEAN CELL VOLUME 91.4 fl (81.0-99.0); MEAN CORPUSCULAR HEMOGLOBIN 29.9 pg (27.0-31.0); MEAN CORPUSCULAR HGB CONC 32.7 g/dL (33.0-37.0); MEAN PLATELET VOLUME 11.6 fl (7.2-11.7); MONO # 0.3 K/uL (0.0-0.8); MONO % 6.4 % (0.0-10.0); NEUT # 3.1 K/uL (1.8-7.0); NEUT % 59.6 % (50.0-75.0); RBC 4.4 Mil/uL (3.80-5.20); RED CELL DISTRIBUTION WIDTH 14.1 % (11.5-14.5); WHITE BLOOD COUNT 5.2 K/uL (4.8-10.8)
[2018-08-07 18:16] LABS: INR 1.2; PROTHROMBIN TIME 13.3 Seconds (9.8-13.1)
[2018-08-07 18:18] LABS: SQUAMOUS EPITHIAL < 1 /hpf (0-5); URINE BACTERIA RARE (<OCC); URINE BILIRUBIN NEGATIVE (NEGATIVE); URINE BLOOD NEGATIVE (NEGATIVE); URINE CLARITY CLEAR (Clear); URINE COLOR YELLOW (YELLOW); URINE GLUCOSE (UA) NEG (NEGATIVE); URINE LEUKOCYTE ESTERASE NEG Leu/uL (Negative); URINE PROTEIN NEGATIVE (NEGATIVE); URINE UROBILINOGEN 0.2-1.0 mg/dL (0.2-1.0)
[2018-08-07 18:19] LABS: PARTIAL THROMBOPLASTIN TIME 43.3 Seconds (25.6-37.1)
[2018-08-07 18:22] LABS: ALB/GLOB RATIO 1.4 (1.0-2.1); ALBUMIN 4.5 g/dL (3.5-5.0); ALT/SGPT 35 U/L (9-52); AST/SGOT 43 U/L (14-36); BLOOD UREA NITROGEN 15 mg/dl (7-17); CALCIUM 9.4 mg/dL (8.4-10.2); GFR NON-AFRICAN AMERICAN > 60
[2018-08-07] MEDS ORDERED: Albuterol HFA 90 mcg/actuation (8 g) INH PRN (21:33)
[2018-08-07] MEDS ORDERED: Albuterol 0.083% Inhal Sol (2.5 mg/3 mL) UD INH PRN (21:33)
--- NOTE | 2018-08-07 21:39 | CP.PCM.HP ---
History of Present Illness - History of Present Illness History of Present Illness: 78 yo F with pmhx of Hypothyroid, angina, asthma presents with bilateral "lung pain" at bilateral upper posterior thoracic with Chest tightness. Pt states symptoms began 3 days ago while at rest. She states pain to lungs and back is pressure like, localized, exacerbated with dry, non productive cough. Pt also reports associated chest discomfort at L lateral sternum at 2-3 intercostal rib. Pain is pressure and sometimes squeezing, 8/10; localized; exacerbated with coughing and deep inspiration. Pain has been consistent for the past 3 days. Denies fever, sick contacts or recent travel. Pt denies exacerbation of symptoms with exertion. No history of MO/CAD. History of treated pneumonia 1 year prior and bronchitis 2 years prior. Pt has history of asthma and has been using her albuterol rescue inhaler 3-4 times per day; some days when not symptomatic, she doesnt have to use it. Pt does report of occasional chills. Pt doesnt recall vaccination to pneumonia Of note, pt was previously admitted 05/2018 for influenza and bronchitis; Aditionally, pt states she has several year history of epigastric tenderness and contributes it to HX of GERD PMD: Pulmonology: Dr. Bravo Surg: tyler; cyst at L hand famhx: none Soc: denies smoking, etoh, illicit drugs; lives with partner Allergies to cipro, amoxicillin, cortisone Present on Admission - Present on Admission Any Indicators Present on Admission: No History of Uncontrolled Diabetes: No Urinary Catheter: No Review of Systems - Cardiovascular Cardiovascular: Chest Pain, Chest Pain at Rest - Respiratory Respiratory: Cough, Dyspnea, Wheezing. absent: Hemoptysis - Gastrointestinal Gastrointestinal: Abdominal Pain (epigastric) - Genitourinary Genitourinary: absent: Dysuria, Urinary Frequency - Neurological Neurological: absent: Abnormal Gait Past Patient History - Infectious Disease Hx of Infectious Diseases: None - Past Medical History & Family History Past Medical History?: Yes - Past Social History Smoking Status: Never Smoked Alcohol: None Drugs: Denies Home Situation {Lives}: With Family - CARDIAC Hx Hypertension: Yes - PULMONARY Hx Asthma: Yes Hx Bronchitis: Yes Hx Pneumonia: Yes Hx Sleep Apnea: No - NEUROLOGICAL Hx Migraine: Yes Hx Transient Ischemic Attacks (TIA): No - HEENT Hx HEENT Problems: No - RENAL Hx Chronic Kidney Disease: No - ENDOCRINE/METABOLIC Hx Hypothyroidism: Yes - HEMATOLOGICAL/ONCOLOGICAL Hx Human Immunodeficiency Virus (HIV): No - INTEGUMENTARY Hx Dermatological Problems: No - MUSCULOSKELETAL/RHEUMATOLOGICAL Hx Fractures: No Hx Osteoporosis: Yes (OSTEOPENIA) - GASTROINTESTINAL Hx Gastritis: Yes - GENITOURINARY/GYNECOLOGICAL Hx Genitourinary Disorders: No - PSYCHIATRIC Hx Anxiety: Yes - SURGICAL HISTORY Hx Cholecystectomy: Yes (complicated, required revision) - ANESTHESIA Hx Anesthesia: Yes Hx Anesthesia Reactions: No Hx Malignant Hyperthermia: No Meds Allergies/Adverse Reactions: Allergies Allergy/AdvReac Type Severity Reaction Status Date / Time ciprofloxacin Allergy chest Verified 08/07/18 16:02 pressure amoxicillin AdvReac DIARRHEA Verified 08/07/18 16:02 amoxicillin trihydrate AdvReac DIARRHEA Verified 08/07/18 16:02 [From Augmentin] cortisone AdvReac DIZZINESS Verified 08/07/18 16:02 potassium clavulanate AdvReac DIARRHEA Verified 08/07/18 16:02 [From Augmentin] Physical Exam - Constitutional Appears: No Acute Distress - Eye Exam Eye Exam: EOMI - ENT Exam ENT Exam: Mucous Membranes Moist - Respiratory Exam Respiratory Exam: Clear to Auscultation Bilateral, NORMAL BREATHING PATTERN. absent: Wheezes - Cardiovascular Exam Cardiovascular Exam: REGULAR RHYTHM, +S1, +S2 - GI/Abdominal Exam GI & Abdominal Exam: Normal Bowel Sounds, Soft, Tenderness (Epigastric) - Back Exam Back exam: absent: CVA tenderness (L), CVA tenderness (R) - Neurological Exam Neurological exam: Alert, CN II-XII Intact, Oriented x3 - Psychiatric Exam Psychiatric exam: Normal Affect, Normal Mood Results - Vital Signs Recent Vital Signs: Last Vital Signs Temp 97.9 F 08/07/18 16:02 Pulse 71 08/07/18 19:05 Resp 18 08/07/18 19:05 BP 144/61 08/07/18 19:05 Pulse Ox 98 08/07/18 19:05 - Labs Result Diagrams: 08/07/18 18:04 08/07/18 18:04 Labs: Laboratory Results - last 24 hr 08/07/18 08/07/18 08/07/18 18:04 18:04 18:04 WBC 5.2 RBC 4.40 Hgb 13.2 D Hct 40.2 MCV 91.4 MCH 29.9 MCHC 32.7 L RDW 14.1 Plt Count 81 L D MPV 11.6 Neut % (Auto) 59.6 Lymph % (Auto) 31.2 [place] % (Auto) 6.4 Eos % (Auto) 2.2 Baso % (Auto) 0.6 Neut # (Auto) 3.1 Lymph # (Auto) 1.6 Frio # (Auto) 0.3 Eos # (Auto) 0.1 Baso # (Auto) 0.0 PT 13.3 H INR 1.2 APTT 43.3 H Sodium 140 Potassium 3.8 Chloride 104 Carbon Dioxide 26 Anion Gap 14 BUN 15 Creatinine 0.6 L Est GFR ( Amer) > 60 Est GFR (Non-Af Amer) > 60 Random Glucose 90 Calcium 9.4 Total Bilirubin 0.7 AST 43 H D ALT 35 Alkaline Phosphatase 130 H Troponin I < 0.0120 Total Protein 7.7 Albumin 4.5 Globulin 3.2 Albumin/Globulin Ratio 1.4 Urine Color Urine Clarity Urine pH Ur Specific [place] Urine Protein Urine Glucose (UA) Urine Ketones Urine Blood Urine Nitrate Urine Bilirubin Urine Urobilinogen Ur Leukocyte Esterase Urine RBC (Auto) Urine Microscopic WBC Ur Squamous Epith Cells Urine Bacteria 08/07/18 18:04 WBC RBC Hgb Hct MCV MCH MCHC RDW Plt Count MPV Neut % (Auto) Lymph % (Auto) Frio % (Auto) Eos % (Auto) Baso % (Auto) Neut # (Auto) Lymph # (Auto) Frio # (Auto) Eos # (Auto) Baso # (Auto) PT INR APTT Sodium Potassium Chloride Carbon Dioxide Anion Gap BUN Creatinine Est GFR ( Amer) Est GFR (Non-Af Amer) Random Glucose Calcium Total Bilirubin AST ALT Alkaline Phosphatase Troponin I Total Protein Albumin Globulin Albumin/Globulin Ratio Urine Color Yellow Urine Clarity Clear Urine pH 6.0 Ur Specific [place] 1.016 Urine Protein Negative Urine Glucose (UA) Neg Urine Ketones Negative Urine Blood Negative Urine Nitrate Negative Urine Bilirubin Negative Urine Urobilinogen 0.2-1.0 Ur Leukocyte Esterase Neg Urine RBC (Auto) 2 Urine Microscopic WBC < 1 Ur Squamous Epith Cells < 1 Urine Bacteria Rare Assessment & Plan - Assessment and Plan (Free Text) Assessment: 78 yo F with pmhx of Hypothyroid, angina, asthma presents with bilateral "lung pain" at bilateral upper posterior thoracic with Chest tightness. Plan: cxr: pending official interpretation Chest pain Admit to tele cardiac sonographer r/o ACS EKG reviewed Likely 2/2 to cough Troponin neg x1 f/u serial troponin x2, am labs, blood culture Asthma s/p duoneb and solu-medrol c/w home meds: Ventolin, Advair diskus, duoneb prn monitor for SOB and vitals HTN controlled c/w home meds: amlodipine, valsartan monitor vitals GERD c/w home meds: calcium carbonate held omeprazole (NF) start ranitidine monitor for reflux Hypothyroid c/w home meds: levothyroxine DVT prophylaxis Lovenox sc Case and plan d/w Dr. Sd Barnes MD PGY2
[2018-08-07] MEDS ORDERED: raNITIdine HCl 150 mg/10 ml Soln Cup PO SCH (22:15)
[2018-08-08 05:29] VITALS: RESP 18
[2018-08-08 06:15] LABS: HEMOGLOBIN 13.2 g/dL (12.0-16.0); MEAN CELL VOLUME 89.9 fl (81.0-99.0); MEAN CORPUSCULAR HEMOGLOBIN 29.6 pg (27.0-31.0); RBC 4.47 Mil/uL (3.80-5.20); RED CELL DISTRIBUTION WIDTH 14.2 % (11.5-14.5); WHITE BLOOD COUNT 4.5 K/uL (4.8-10.8)
[2018-08-08 06:27] LABS: ALB/GLOB RATIO 1.4 (1.0-2.1); ALBUMIN 4.4 g/dL (3.5-5.0); ALT/SGPT 35 U/L (9-52); AST/SGOT 37 U/L (14-36); BLOOD UREA NITROGEN 15 mg/dl (7-17); CALCIUM 9.4 mg/dL (8.4-10.2); GFR NON-AFRICAN AMERICAN > 60; LIPASE 57 U/L (23-300)
[2018-08-08] MEDS ORDERED: Levothyroxine 125 MCG TAB PO SCH (06:30)
[2018-08-08] MEDS ORDERED: FLUTICASONE PROPION/SALMETEROL 113-14 IH SCH (09:00)
[2018-08-08] MEDS ORDERED: Lactobacillus Acidophilus 500 MU Cap PO SCH (09:00)
[2018-08-08] MEDS ORDERED: Enoxaparin 40 mg Syringe SC SCH (09:00)
--- NOTE | 2018-08-08 11:31 | CARD ---
APPROVED REPORT Date of service: 08/07/2018 EKG Measurement Heart [id number] <Conclusion> Normal sinus rhythm Left axis deviation Right bundle branch block Abnormal ECG
[2018-08-08 12:14] VITALS: BP 135/54; PULSE 66; TEMP 97.4
--- NOTE | 2018-08-08 12:49 | RAD ---
Date of service: 08/07/2018 HISTORY: Cough COMPARISON: No prior. TECHNIQUE: 1 view obtained. FINDINGS: LUNGS: No interval consolidation seen. Lb its persisting-it is less conspicuous the left infrahilar bronchovascular markings peribronchial thickening current appearance is compatible with top-normal appearance left heart. No persistent underlying pathology here is bili present. PLEURA: No significant pleural effusion identified, no pneumothorax apparent. CARDIOVASCULAR: No aortic atherosclerotic calcification present. Normal cardiac size. No pulmonary vascular congestion. OSSEOUS STRUCTURES: Bilateral shoulder arthrosis. Mild thoracic spondylosis. VISUALIZED UPPER ABDOMEN: Prior surgical clips right upper quadrant less conspicuous-changes view small on this exam than before OTHER FINDINGS: None. IMPRESSION: No residual or significant appearing cardiopulmonary pathology believed present. No dense consolidative infiltrate appreciated. Other findings as above.
--- NOTE | 2018-08-08 12:59 | CP.PCM.DIS ---
Provider - Provider Date of Admission: 08/07/18 20:36 Attending physician: Maxim Beaver MD Time Spent in preparation of Discharge (in minutes): 20 Hospital Course - Lab Results Lab Results: Most Recent Lab Values WBC 4.5 K/uL (4.8-10.8) L 08/08/18 05:50 RBC 4.47 Mil/uL (3.80-5.20) 08/08/18 05:50 Hgb 13.2 g/dL (12.0-16.0) 08/08/18 05:50 Hct 40.2 % (34.0-47.0) 08/08/18 05:50 MCV 89.9 fl (81.0-99.0) 08/08/18 05:50 MCH 29.6 pg (27.0-31.0) 08/08/18 05:50 MCHC 33.0 g/dL (33.0-37.0) 08/08/18 05:50 RDW 14.2 % (11.5-14.5) 08/08/18 05:50 Plt Count 76 K/uL (130-400) L 08/08/18 05:50 MPV 11.6 fl (7.2-11.7) 08/07/18 18:04 Neut % (Auto) 59.6 % (50.0-75.0) 08/07/18 18:04 Lymph % (Auto) 31.2 % (20.0-40.0) 08/07/18 18:04 [place] % (Auto) 6.4 % (0.0-10.0) 08/07/18 18:04 Eos % (Auto) 2.2 % (0.0-4.0) 08/07/18 18:04 Baso % (Auto) 0.6 % (0.0-2.0) 08/07/18 18:04 Neut # (Auto) 3.1 K/uL (1.8-7.0) 08/07/18 18:04 Lymph # (Auto) 1.6 K/uL (1.0-4.3) 08/07/18 18:04 [place] # (Auto) 0.3 K/uL (0.0-0.8) 08/07/18 18:04 Eos # (Auto) 0.1 K/uL (0.0-0.7) 08/07/18 18:04 Baso # (Auto) 0.0 K/uL (0.0-0.2) 08/07/18 18:04 PT 13.3 Seconds (9.8-13.1) H 08/07/18 18:04 INR 1.2 08/07/18 18:04 APTT 43.3 Seconds (25.6-37.1) H 08/07/18 18:04 Sodium 139 mmol/l (132-148) 08/08/18 05:50 Potassium 4.1 MMOL/L (3.6-5.0) 08/08/18 05:50 Chloride 106 mmol/L (98-107) 08/08/18 05:50 Carbon Dioxide 24 mmol/L (22-30) 08/08/18 05:50 Anion Gap 13 (10-20) 08/08/18 05:50 BUN 15 mg/dl (7-17) 08/08/18 05:50 Creatinine 0.5 mg/dl (0.7-1.2) L 08/08/18 05:50 Est GFR ( Amer) > 60 08/08/18 05:50 Est GFR (Non-Af Amer) > 60 08/08/18 05:50 Random Glucose 117 mg/dL (65-105) H 08/08/18 05:50 Calcium 9.4 mg/dL (8.4-10.2) 08/08/18 05:50 Total Bilirubin 0.7 mg/dl (0.2-1.3) 08/08/18 05:50 AST 37 U/L (14-36) H 08/08/18 05:50 ALT 35 U/L (9-52) 08/08/18 05:50 Alkaline Phosphatase 133 U/L (38-126) H 08/08/18 05:50 Troponin I < 0.0120 ng/mL (0.00-0.120) 08/08/18 05:50 Total Protein 7.7 G/DL (6.3-8.2) 08/08/18 05:50 Albumin 4.4 g/dL (3.5-5.0) 08/08/18 05:50 Globulin 3.3 gm/dL (2.2-3.9) 08/08/18 05:50 Albumin/Globulin Ratio 1.4 (1.0-2.1) 08/08/18 05:50 Lipase 57 U/L (23-300) 08/08/18 05:50 Urine Color Yellow (YELLOW) 08/07/18 18:04 Urine Clarity Clear (Clear) 08/07/18 18:04 Urine pH 6.0 (5.0-8.0) 08/07/18 18:04 Ur Specific [place] 1.016 (1.003-1.030) 08/07/18 18:04 Urine Protein Negative mg/dL (NEGATIVE) 08/07/18 18:04 Urine Glucose (UA) Neg mg/dL (NEGATIVE) 08/07/18 18:04 Urine Ketones Negative mg/dL (NEGATIVE) 08/07/18 18:04 Urine Blood Negative (NEGATIVE) 08/07/18 18:04 Urine Nitrate Negative (NEGATIVE) 08/07/18 18:04 Urine Bilirubin Negative (NEGATIVE) 08/07/18 18:04 Urine Urobilinogen 0.2-1.0 mg/dL (0.2-1.0) 08/07/18 18:04 Ur Leukocyte Esterase Neg Ana/uL (Negative) 08/07/18 18:04 Urine RBC (Auto) 2 /hpf (0-3) 08/07/18 18:04 Urine Microscopic WBC < 1 /hpf (0-5) 08/07/18 18:04 Ur Squamous Epith Cells < 1 /hpf (0-5) 08/07/18 18:04 Urine Bacteria Rare (<OCC) 08/07/18 18:04 - Hospital Course Hospital Course: 78 yo F with pmhx of Hypothyroid, angina, asthma presents with bilateral lung pain. Vitals stable, CXR showed no infiltrate, EKG WNL, troponin negative x1. Pain and tightness resoleved overnight and patient medically cleared for discharge to home. Only complaint was cough of which she was prescribed robitussin to take oupatient. Rec f/u with PMD within 1 week. Discharge Exam - Head Exam Head Exam: ATRAUMATIC, NORMAL INSPECTION, NORMOCEPHALIC - Eye Exam Eye Exam: Normal appearance - ENT Exam ENT Exam: Mucous Membranes Moist - Respiratory Exam Respiratory Exam: Clear to PA & Lateral, NORMAL BREATHING PATTERN. absent: Chest Wall Tenderness, Rales, Rhonchi, Wheezes, Respiratory Distress - Cardiovascular Exam Cardiovascular Exam: REGULAR RHYTHM - GI/Abdominal Exam GI & Abdominal Exam: Soft, Unremarkable. absent: Tenderness - Extremities Exam Extremities exam: normal inspection - Neurological Exam Neurological exam: Alert, Normal Gait, Oriented x3 - Psychiatric Exam Psychiatric exam: Normal Affect, Normal Mood - Skin Skin Exam: Normal Color, Warm Discharge Plan - Discharge Medications Prescriptions: guaiFENesin/Dextromethorphan [guaiFENesin-DM] 10 ml PO Q6H PRN #1 udc PRN Reason: cough - Follow Up Plan Condition: GOOD Disposition: HOME/ ROUTINE Instructions: Asthma, Adult (DC), Chest Pain (DC) Additional Instructions: follow up with in 1 week Referrals: Armin Bravo MD [Staff Provider] - Royal Pillai MD [Staff Provider] -
[2018-08-10 16:44] VITALS: O2SAT 97
== END 2018-08-08 13:38 | disposition home or self-care (01) ==
LOC: H.ER 15:56 → H.ERHOLD 20:36 → H.TEL 08-08 04:31
PROVIDERS: ADMIT Internal Medicine; ATTEND Internal Medicine
DX: R07.89 Other chest pain (principal); K29.70 Gastritis, unspecified, without bleeding; F41.9 Anxiety disorder, unspecified; E03.9 Hypothyroidism, unspecified; I25.10 Atherosclerotic heart disease of native coronary artery without angina pectoris; I10 Essential (primary) hypertension; M81.0 Age-related osteoporosis without current pathological fracture; K21.9 Gastro-esophageal reflux disease without esophagitis; Z79.82 Long term (current) use of aspirin; Z79.890 Hormone replacement therapy; Z88.3 Allergy status to other anti-infective agents; Z88.0 Allergy status to penicillin
CPT/HCPCS: 36415; 71045; 80053; 81003; 83690; 84484; 85025; 85027; 85610; 85730; 87040; 93005; 96372; 96374; 99284; G0378; J1650; J2930